=== PATIENT | male | born 1990 | race Caucasian/White ===

== ENCOUNTER 2019-01-22 19:35 | Inpatient (IN) ==
[2019-01-22] MEDS ORDERED: Isovue-370 500 ML BOTTLE IVP ONE (20:00)
[2019-01-22] MEDS ORDERED: 0.9 % Sodium Chloride 1,000 ML IVC ONE (20:01)
[2019-01-22] MEDS ORDERED: *HR* HYDROcodone/Acet 5/325 mg TABLET PO ONE (20:01)
[2019-01-22 20:23] LABS: Basophils % 0.1 %; Hematocrit 41.4 % (37.5-50.1); Hemoglobin 14.4 g/dL (12.9-16.9); Immature Granulocytes % 0.4 % (0-4); Lymphocytes # 0.4 K/mcL (0.6-4.6); Lymphocytes % 4.8 %; Mean Corpuscular HGB Conc 34.8 g/dL (31.6-35.5); Mean Corpuscular Hemoglobin 30.1 pg (28.0-33.3); Mean Corpuscular Volume 86.6 fL (83.0-100.0); Monocytes # 0.4 K/mcL (0.0-1.3); Monocytes % 5.3 %; Neutrophils # 7.3 K/mcL (1.6-8.9); Platelet Count 107 K/mcL (140-400); Red Blood Count 4.78 M/mcL (4.19-5.50); Red Cell Distribution Width 11.9 % (11.5-14.5); Segmented Neutrophils % 89.4 %; White Blood Count 8.1 K/mcL (4.3-11.1)
[2019-01-22 20:45] LABS: BUN/Creatinine Ratio 13 (6-26); Blood Urea Nitrogen 13 mg/dL (6-20); Calcium 9.1 mg/dL (8.6-10.3); Carbon Dioxide 25 mEq/L (23-29); Chloride 92 mEq/L (98-107); Glucose 128 mg/dL (70-105); Osmolality,Calculated 268 (280-300); Potassium 3.3 mEq/L (3.5-5.1); Sodium 128 mEq/L (136-145); Troponin I 0.03 ng/mL (< 0.04); eGFR For African Americans > 60 (> 60); eGFR For Non-African Americans > 60 (> 60)
[2019-01-22] MEDS ORDERED: Vancomycin (wt based) 1,000 MG VIAL IV STA (22:14)
[2019-01-22] MEDS ORDERED: Piperacillin/Tazobactam 3.375 GM in 0.9 % Sodium Chloride Mini Bag 100 ML IVPB ONE (22:14)
[2019-01-22] MEDS ORDERED: Potassium Chloride Elixir 20 MEQ/15 ML UDC PO ONE (22:59)
[2019-01-22 23:59] LABS: Amphetamine Screen,Urine Positive ng/mL (Cutoff=1000); Barbiturate Screen,Urine Negative ng/mL (Cutoff=200); Benzodiazepines Screen,Urine Negative ng/mL (Cutoff=200); Cannabinoid Screen,Urine Positive ng/mL (Cutoff = 50); Cocaine Screen,Urine Negative ng/mL (Cutoff= 300); Opiate Screen,Urine Positive ng/mL (Cutoff=300); Phencyclidine Screen,Urine Negative ng/mL (Cutoff=25)
[2019-01-23] MEDS: Ringers Solution, Lactated 1,000 ML IVC SCH ×3 (00:03→18:22)
[2019-01-23] MEDS: Acetaminophen 325 MG TABLET PO PRN (02:15)
[2019-01-23] MEDS ORDERED: Ringers Solution, Lactated 1,000 ML IVC ONE (06:13)
[2019-01-23] MEDS ORDERED: Ketorolac 30 MG/ML VIAL IVP ONE (06:13)
[2019-01-23] MEDS: *HR* Heparin 5,000 UNIT/ML VIAL SQ SCH ×2 (06:49→16:41)
[2019-01-23 07:13] LABS: Hepatitis B Surface Antigen Nonreactive (Nonreactive)
[2019-01-23 07:42] LABS: Hepatitis B Core IgM Nonreactive (Nonreactive)
[2019-01-23 07:43] LABS: Hepatitis A Antibody IgM Nonreactive (Nonreactive)
[2019-01-23 08:01] LABS: Alanine Aminotransferase 37 Units/L (7-52); Albumin 3.2 g/dL (3.5-5.7); Albumin/Globulin Ratio 1.1 (1.1-2.2); Alkaline Phosphatase 57 Units/L (34-104); Aspartate Amino Transferase 22 Units/L (13-39); BUN/Creatinine Ratio 14 (6-26); Bilirubin,Direct 0.3 mg/dL (0.0-0.2); Bilirubin,Indirect 0.4 mg/dL (0.0-1.0); Bilirubin,Total 0.7 mg/dL (0.3-1.0); Blood Urea Nitrogen 12 mg/dL (6-20); Calcium 8.3 mg/dL (8.6-10.3); Carbon Dioxide 24 mEq/L (23-29); Chloride 96 mEq/L (98-107); Glucose 129 mg/dL (70-105); Osmolality,Calculated 271 (280-300); Potassium 3.5 mEq/L (3.5-5.1); Sodium 130 mEq/L (136-145); Total Protein 6.2 g/dL (6.4-8.9); eGFR For African Americans > 60 (> 60); eGFR For Non-African Americans > 60 (> 60)
[2019-01-23] MEDS ORDERED: cefTRIAXone 2,000 MG in Water for inj. (sterile) 20 ML IVPB SCH (09:00)
[2019-01-23] MEDS ORDERED: cefTRIAXone 2,000 MG in Water for inj. (sterile) 10 ML IVPB SCH (09:00)
[2019-01-23 09:12] LABS: C-Reactive Protein 214 mg/L (Less than 10)
[2019-01-23] MEDS ORDERED: *HR* LORazepam 2 MG/ML VIAL IVP ONE (09:13)
[2019-01-23] MEDS ORDERED: *HR* LORazepam 0.5 MG TABLET PO ONE (09:15)
[2019-01-23 09:35] LABS: Basophils % 0.2 %; Hematocrit 36.6 % (37.5-50.1); Hemoglobin 12.9 g/dL (12.9-16.9); Immature Granulocytes % 0.7 % (0-4); Lymphocytes # 0.4 K/mcL (0.6-4.6); Lymphocytes % 6.3 %; Mean Corpuscular HGB Conc 35.2 g/dL (31.6-35.5); Mean Corpuscular Hemoglobin 30.1 pg (28.0-33.3); Mean Corpuscular Volume 85.5 fL (83.0-100.0); Mean Platelet Volume 12.6 fL (9.4-12.4); Monocytes # 0.3 K/mcL (0.0-1.3); Neutrophils # 5.3 K/mcL (1.6-8.9); Red Blood Count 4.28 M/mcL (4.19-5.50); Red Cell Distribution Width 11.9 % (11.5-14.5); Segmented Neutrophils % 87.8 %
[2019-01-23 09:36] LABS: Platelet Count 76 K/mcL (140-400)
[2019-01-23] MEDS ORDERED: *HR* LORazepam 2 MG/ML VIAL IVP PRN ×3 (13:02)
[2019-01-23] MEDS: Ketorolac 30 MG/ML VIAL IVP PRN (13:34)
[2019-01-23 14:24] LABS: INR 1.3; Prothrombin Time 14.9 Seconds (9.4-12.1)
[2019-01-23 14:24] LABS: Hepatitis C Virus Antibody Reactive (Nonreactive)
[2019-01-23 14:27] LABS: Activated Partial Thrombo Time 28.4 Seconds (26.0-36.0)
[2019-01-23] MEDS: Piperacillin/Tazobactam 3.375 GM in 0.9 % Sodium Chloride Mini Bag 100 ML IVPB SCH ×2 (16:36→22:52)
[2019-01-23] MEDS: *HR* OxyCODONE Immed Rel 5 MG TABLET PO PRN (22:51)
[2019-01-24] MEDS: Acetaminophen 325 MG TABLET PO PRN (00:10)
[2019-01-24 01:58] LABS: Basophils % 0.2 %; Red Cell Distribution Width 12.1 % (11.5-14.5)
[2019-01-24 01:59] LABS: Eosinophils # 0.1 K/mcL (0.0-0.6); Eosinophils % 1.8 %; Hematocrit 34.4 % (37.5-50.1); Hemoglobin 12.3 g/dL (12.9-16.9); Immature Granulocytes % 0.7 % (0-4); Lymphocytes # 0.3 K/mcL (0.6-4.6); Lymphocytes % 6.4 %; Mean Corpuscular HGB Conc 35.8 g/dL (31.6-35.5); Mean Corpuscular Hemoglobin 30.4 pg (28.0-33.3); Mean Corpuscular Volume 85.1 fL (83.0-100.0); Mean Platelet Volume 12.2 fL (9.4-12.4); Monocytes # 0.3 K/mcL (0.0-1.3); Monocytes % 5.5 %; Red Blood Count 4.04 M/mcL (4.19-5.50); Segmented Neutrophils % 85.4 %; White Blood Count 4.5 K/mcL (4.3-11.1)
[2019-01-24 02:12] LABS: Neutrophils # 3.8 K/mcL (1.6-8.9); Platelet Count 66 K/mcL (140-400)
[2019-01-24 02:15] LABS: BUN/Creatinine Ratio 21 (6-26); Blood Urea Nitrogen 18 mg/dL (6-20); Carbon Dioxide 26 mEq/L (23-29); Chloride 102 mEq/L (98-107); Glucose 175 mg/dL (70-105); Osmolality,Calculated 290 (280-300); Potassium 3.2 mEq/L (3.5-5.1); Sodium 137 mEq/L (136-145); Vancomycin,Trough 6 mcg/mL (5-10); eGFR For African Americans > 60 (> 60); eGFR For Non-African Americans > 60 (> 60)
[2019-01-24] MEDS ORDERED: Potassium Chloride 20 MEQ, Lidocaine 1% 2 ML in 0.9 % Sodium Chloride 250 ML IVPB ONE (03:33)
[2019-01-24] MEDS: *HR* Heparin 5,000 UNIT/ML VIAL SQ SCH ×2 (06:02→17:17)
[2019-01-24] MEDS: Piperacillin/Tazobactam 3.375 GM in 0.9 % Sodium Chloride Mini Bag 100 ML IVPB SCH ×2 (06:12→13:57)
[2019-01-24] MEDS: *HR* OxyCODONE Immed Rel 5 MG TABLET PO PRN (06:28)
[2019-01-24] MEDS ORDERED: *HR* FentaNYL PATCH 50 MCG PATCH TD SCH (08:00)
[2019-01-24 08:02] LABS: Acinetobacter baumannii by PCR Not Detected (Not Detect); Candida albicans by PCR Not Detected (Not Detect); Candida glabrata by PCR Not Detected (Not Detect); Candida krusei by PCR Not Detected (Not Detect); Candida parapsilosis by PCR Not Detected (Not Detect); Candida tropicalis by PCR Not Detected (Not Detect); Enterobacter cloacae Cmplx PCR Not Detected (Not Detect); Enterobacteriaceae by PCR Not Detected (Not Detect); Enterococcus by PCR Not Detected (Not Detect); Escherichia coli by PCR Not Detected (Not Detect); Klebsiella oxytoca by PCR Not Detected (Not Detect); Klebsiella pneumoniae by PCR Not Detected (Not Detect); Proteus by PCR Not Detected (Not Detect); Pseudomonas aeruginosa by PCR Not Detected (Not Detect); Serratia marcescens by PCR Not Detected (Not Detect); Staphylococcus aureus by PCR DETECTED (Not Detect); Streptococcus agalactiae(B)PCR Not Detected (Not Detect); Streptococcus by PCR Not Detected (Not Detect); Streptococcus pneumoniae PCR Not Detected (Not Detect); Streptococcus pyogenes (A) PCR Not Detected (Not Detect); mecA Methicillin-Resist Gene DETECTED (Not Detect)
[2019-01-24] MEDS: Ringers Solution, Lactated 1,000 ML IVC SCH ×2 (15:41→20:07)
[2019-01-24] MEDS: Ketorolac 30 MG/ML VIAL IVP PRN (19:17)
[2019-01-24 20:41] VITALS: BP 135/68
[2019-01-24] MEDS ORDERED: Aminoglycoside Consult 1 EACH MC ONE (22:29)
== END 2019-01-24 22:30 | disposition left against medical advice (07) | DRG 720 ==
LOC: CDU 19:35 → EMEROOARM 19:35 → CDU 01-23 01:31 → 2NNU 01-23 16:12
PROVIDERS: ADMIT Internal Medicine; ATTEND Internal Medicine

== ENCOUNTER 2019-01-31 16:41 | Inpatient (IN) ==
[2019-01-31] MEDS ORDERED: 0.9 % Sodium Chloride 1,000 ML IVC ONE (16:52)
[2019-01-31 17:40] LABS: Basophils % 0.2 %; Eosinophils % 0.1 %; Hematocrit 32.1 % (37.5-50.1); Hemoglobin 11.1 g/dL (12.9-16.9); Immature Granulocytes % 0.5 % (0-4); Lymphocytes # 0.4 K/mcL (0.6-4.6); Mean Corpuscular HGB Conc 34.6 g/dL (31.6-35.5); Mean Corpuscular Hemoglobin 29.9 pg (28.0-33.3); Mean Corpuscular Volume 86.5 fL (83.0-100.0); Mean Platelet Volume 12.3 fL (9.4-12.4); Monocytes # 0.2 K/mcL (0.0-1.3); Monocytes % 2.7 %; Neutrophils # 8.1 K/mcL (1.6-8.9); Platelet Count 119 K/mcL (140-400); Red Blood Count 3.71 M/mcL (4.19-5.50); Red Cell Distribution Width 12.5 % (11.5-14.5); Segmented Neutrophils % 92.5 %; White Blood Count 8.7 K/mcL (4.3-11.1)
[2019-01-31] MEDS ORDERED: *HR* FentaNYL (PF) 100 MCG/2 ML VIAL IVP ONE (17:55)
[2019-01-31 18:06] LABS: Alanine Aminotransferase 20 Units/L (7-52); Albumin 2.7 g/dL (3.5-5.7); Albumin/Globulin Ratio 0.7 (1.1-2.2); Alkaline Phosphatase 91 Units/L (34-104); Aspartate Amino Transferase 32 Units/L (13-39); BUN/Creatinine Ratio 16 (6-26); Bilirubin,Direct 0.3 mg/dL (0.0-0.2); Bilirubin,Indirect 0.5 mg/dL (0.0-1.0); Bilirubin,Total 0.8 mg/dL (0.3-1.0); Blood Urea Nitrogen 16 mg/dL (6-20); Calcium 7.8 mg/dL (8.6-10.3); Carbon Dioxide 25 mEq/L (23-29); Chloride 93 mEq/L (98-107); Globulin 3.8 g/dL (2.4-3.5); Glucose 178 mg/dL (70-105); Magnesium 2.2 mg/dL (1.6-2.6); Osmolality,Calculated 270 (280-300); Phosphorous 3.4 mg/dL (2.7-4.5); Sodium 127 mEq/L (136-145); Total Protein 6.5 g/dL (6.4-8.9); eGFR For African Americans > 60 (> 60); eGFR For Non-African Americans > 60 (> 60)
[2019-01-31] MEDS ORDERED: Potassium Chloride Elixir 20 MEQ/15 ML UDC PO ONE (18:28)
[2019-01-31] MEDS ORDERED: Aspirin 325 MG TABLET PO ONE (18:29)
[2019-01-31] MEDS ORDERED: Potassium Chloride 40 MEQ, Lidocaine 1% 2 ML in 0.9 % Sodium Chloride 500 ML IVPB ONE (18:41)
[2019-01-31] MEDS ORDERED: *HR* OxyCODONE Immed Rel 5 MG TABLET PO PRN (21:58)
[2019-01-31] MEDS ORDERED: Naloxone 0.4 MG/ML INJ IVP PRN (21:58)
[2019-01-31] MEDS ORDERED: Ondansetron ODT 4 MG TAB.RAPDIS SL PRN (21:58)
[2019-01-31] MEDS ORDERED: *HR* Heparin 5,000 UNIT/ML VIAL SQ SCH (22:45)
[2019-01-31] MEDS: Nicotine 21 MG PATCH.TD24 TD SCH (23:59)
[2019-02-01] MEDS ORDERED: *HR* LORazepam 2 MG/ML VIAL IVP PRN (00:16)
[2019-02-01 01:49] LABS: Troponin I 0.04 ng/mL (< 0.04)
[2019-02-01] MEDS: Ketorolac 30 MG/ML VIAL IVP PRN ×2 (04:38→12:53)
[2019-02-01 06:31] LABS: mecA Methicillin-Resist Gene DETECTED (Not Detect)
[2019-02-01 06:32] LABS: Acinetobacter baumannii by PCR Not Detected (Not Detect); Candida albicans by PCR Not Detected (Not Detect); Candida glabrata by PCR Not Detected (Not Detect); Candida krusei by PCR Not Detected (Not Detect); Candida parapsilosis by PCR Not Detected (Not Detect); Candida tropicalis by PCR Not Detected (Not Detect); Enterobacter cloacae Cmplx PCR Not Detected (Not Detect); Enterobacteriaceae by PCR Not Detected (Not Detect); Enterococcus by PCR Not Detected (Not Detect); Escherichia coli by PCR Not Detected (Not Detect); Klebsiella oxytoca by PCR Not Detected (Not Detect); Klebsiella pneumoniae by PCR Not Detected (Not Detect); Proteus by PCR Not Detected (Not Detect); Pseudomonas aeruginosa by PCR Not Detected (Not Detect); Serratia marcescens by PCR Not Detected (Not Detect); Staphylococcus aureus by PCR DETECTED (Not Detect); Streptococcus agalactiae(B)PCR Not Detected (Not Detect); Streptococcus by PCR Not Detected (Not Detect); Streptococcus pneumoniae PCR Not Detected (Not Detect); Streptococcus pyogenes (A) PCR Not Detected (Not Detect)
[2019-02-01] MEDS ORDERED: Potassium Chloride Elixir 20 MEQ/15 ML UDC PO ONE (07:38)
[2019-02-01] MEDS: 0.9 % Sodium Chloride 1,000 ML IVC SCH ×3 (11:43→22:29)
[2019-02-01 16:16] LABS: INR 1.2; Prothrombin Time 13.8 Seconds (9.4-12.1)
[2019-02-01 16:22] LABS: Basophils % 0.2 %
[2019-02-01 16:24] LABS: Eosinophils # 0.1 K/mcL (0.0-0.6); Eosinophils % 2.8 %; Hemoglobin 10.7 g/dL (12.9-16.9); Immature Granulocytes % 0.8 % (0-4); Immature Platelets 8.2 % (1.1-6.1); Lymphocytes # 0.6 K/mcL (0.6-4.6); Lymphocytes % 11.7 %; Mean Corpuscular HGB Conc 35.7 g/dL (31.6-35.5); Mean Corpuscular Hemoglobin 30.4 pg (28.0-33.3); Mean Corpuscular Volume 85.2 fL (83.0-100.0); Mean Platelet Volume 12.4 fL (9.4-12.4); Monocytes # 0.4 K/mcL (0.0-1.3); Monocytes % 8.7 %; Neutrophils # 3.7 K/mcL (1.6-8.9); Red Blood Count 3.52 M/mcL (4.19-5.50); Red Cell Distribution Width 12.7 % (11.5-14.5); Segmented Neutrophils % 75.8 %; White Blood Count 4.9 K/mcL (4.3-11.1)
[2019-02-01 16:25] LABS: Platelet Count 86 K/mcL (140-400)
[2019-02-01 16:35] LABS: BUN/Creatinine Ratio 26 (6-26); Blood Urea Nitrogen 24 mg/dL (6-20); Calcium 7.7 mg/dL (8.6-10.3); Carbon Dioxide 22 mEq/L (23-29); Chloride 104 mEq/L (98-107); Glucose 103 mg/dL (70-105); Osmolality,Calculated 282 (280-300); Potassium 4.2 mEq/L (3.5-5.1); Sodium 134 mEq/L (136-145); Troponin I < 0.03 ng/mL (< 0.04); eGFR For African Americans > 60 (> 60); eGFR For Non-African Americans > 60 (> 60)
[2019-02-01] MEDS: *HR* Heparin 5,000 UNIT/ML VIAL SQ SCH (19:49)
[2019-02-01] MEDS: Ketorolac 15 MG/ML VIAL IVP PRN (21:17)
[2019-02-01] MEDS: Acetaminophen 325 MG TABLET PO PRN (22:24)
[2019-02-01] MEDS: Melatonin 3 MG TABLET PO PRN (22:24)
[2019-02-01] MEDS: Nicotine 21 MG PATCH.TD24 TD SCH (22:24)
[2019-02-02] MEDS: *HR* Heparin 5,000 UNIT/ML VIAL SQ SCH ×3 (06:09→18:52)
[2019-02-02] MEDS: Ketorolac 15 MG/ML VIAL IVP PRN ×2 (08:50→18:50)
[2019-02-02 09:46] LABS: Hematocrit 28.3 % (37.5-50.1); Hemoglobin 9.8 g/dL (12.9-16.9); Immature Platelets 8.1 % (1.1-6.1); Mean Corpuscular HGB Conc 34.6 g/dL (31.6-35.5); Mean Corpuscular Volume 86.5 fL (83.0-100.0); Mean Platelet Volume 12.7 fL (9.4-12.4); Red Blood Count 3.27 M/mcL (4.19-5.50); Red Cell Distribution Width 12.6 % (11.5-14.5); White Blood Count 4.8 K/mcL (4.3-11.1)
[2019-02-02 09:53] LABS: INR 1.2; Prothrombin Time 14.1 Seconds (9.4-12.1)
[2019-02-02 10:03] LABS: BUN/Creatinine Ratio 23 (6-26); Blood Urea Nitrogen 18 mg/dL (6-20); Calcium 7.5 mg/dL (8.6-10.3); Carbon Dioxide 21 mEq/L (23-29); Chloride 105 mEq/L (98-107); Glucose 122 mg/dL (70-105); Osmolality,Calculated 277 (280-300); Sodium 132 mEq/L (136-145); Vancomycin,Trough 7 mcg/mL (5-10); eGFR For African Americans > 60 (> 60); eGFR For Non-African Americans > 60 (> 60)
[2019-02-02] MEDS: Nicotine 21 MG PATCH.TD24 TD SCH (22:14)
[2019-02-02] MEDS: Melatonin 3 MG TABLET PO PRN (22:16)
[2019-02-03] MEDS: 0.9 % Sodium Chloride 1,000 ML IVC SCH ×2 (02:44→19:09)
[2019-02-03] MEDS: Ketorolac 15 MG/ML VIAL IVP PRN ×3 (02:44→20:51)
[2019-02-03] MEDS: *HR* Heparin 5,000 UNIT/ML VIAL SQ SCH ×2 (05:53→18:55)
[2019-02-03] MEDS ORDERED: Morphine Sulfate 2 MG/ML SYRINGE IVP ONE (09:58)
[2019-02-03 11:00] LABS: Hematocrit 28.9 % (37.5-50.1); Hemoglobin 9.9 g/dL (12.9-16.9); Mean Corpuscular HGB Conc 34.3 g/dL (31.6-35.5); Mean Corpuscular Hemoglobin 29.6 pg (28.0-33.3); Mean Corpuscular Volume 86.3 fL (83.0-100.0); Mean Platelet Volume 12.3 fL (9.4-12.4); Platelet Count 153 K/mcL (140-400); Red Blood Count 3.35 M/mcL (4.19-5.50); Red Cell Distribution Width 12.8 % (11.5-14.5)
[2019-02-03 11:12] LABS: INR 1.2
[2019-02-03 11:16] LABS: BUN/Creatinine Ratio 19 (6-26); Blood Urea Nitrogen 14 mg/dL (6-20); Calcium 7.8 mg/dL (8.6-10.3); Carbon Dioxide 23 mEq/L (23-29); Chloride 105 mEq/L (98-107); Glucose 92 mg/dL (70-105); Osmolality,Calculated 282 (280-300); Potassium 4.1 mEq/L (3.5-5.1); Sodium 136 mEq/L (136-145); Vancomycin,Trough 10 mcg/mL (5-10); eGFR For African Americans > 60 (> 60); eGFR For Non-African Americans > 60 (> 60)
[2019-02-03] MEDS ORDERED: Lidocaine Viscous Oral Soln 15 ML SOLUTION MM PRN (13:12)
[2019-02-03] MEDS ORDERED: 0.9 % Sodium Chloride 500 ML IVC ONE (13:12)
[2019-02-03] MEDS: *HR* FentaNYL (PF) 100 MCG/2 ML VIAL IVP PRN ×3 (13:35→13:45)
[2019-02-03] MEDS: *HR* Midazolam HCl 5 MG/5 ML VIAL IVP PRN ×3 (13:35→13:45)
[2019-02-03 15:58] LABS: C-Reactive Protein 129 mg/L (Less than 10)
[2019-02-03] MEDS: Melatonin 3 MG TABLET PO PRN (20:52)
[2019-02-03] MEDS: Nicotine 21 MG PATCH.TD24 TD SCH (23:43)
[2019-02-04] MEDS: Acetaminophen 325 MG TABLET PO PRN ×3 (01:02→21:08)
[2019-02-04] MEDS ORDERED: *HR* OxyCODONE Immed Rel 5 MG TABLET PO ONE (01:22)
[2019-02-04] MEDS: *HR* Heparin 5,000 UNIT/ML VIAL SQ SCH ×2 (05:30→17:11)
[2019-02-04] MEDS: Ketorolac 15 MG/ML VIAL IVP PRN ×3 (09:00→22:56)
[2019-02-04] MEDS ORDERED: hydrOXYzine pamoate 25 MG CAPSULE PO PRN (11:46)
[2019-02-04 14:57] LABS: Hemoglobin 9.5 g/dL (12.9-16.9); Mean Corpuscular HGB Conc 32.8 g/dL (31.6-35.5); Mean Corpuscular Hemoglobin 29.8 pg (28.0-33.3); Mean Corpuscular Volume 90.9 fL (83.0-100.0); Mean Platelet Volume 11.7 fL (9.4-12.4); Platelet Count 182 K/mcL (140-400); Red Blood Count 3.19 M/mcL (4.19-5.50); Red Cell Distribution Width 12.8 % (11.5-14.5); White Blood Count 5.5 K/mcL (4.3-11.1)
[2019-02-04 15:32] LABS: BUN/Creatinine Ratio 16 (6-26); Blood Urea Nitrogen 12 mg/dL (6-20); Calcium 7.4 mg/dL (8.6-10.3); Carbon Dioxide 23 mEq/L (23-29); Chloride 106 mEq/L (98-107); Glucose 90 mg/dL (70-105); Osmolality,Calculated 275 (280-300); Potassium 4.2 mEq/L (3.5-5.1); Sodium 133 mEq/L (136-145); eGFR For African Americans > 60 (> 60); eGFR For Non-African Americans > 60 (> 60)
[2019-02-04] MEDS ORDERED: *HR* LORazepam 2 MG/ML VIAL IVP ONE (17:20)
[2019-02-04] MEDS: traZODone 50 MG TABLET PO SCH (21:08)
[2019-02-04] MEDS: Nicotine 21 MG PATCH.TD24 TD SCH (21:08)
[2019-02-04] MEDS: levETIRAcetam 250 MG TABLET PO SCH (21:08)
[2019-02-05] MEDS: *HR* LORazepam 0.5 MG TABLET PO PRN ×3 (00:49→18:10)
[2019-02-05] MEDS ORDERED: *HR* OxyCODONE Immed Rel 5 MG TABLET PO ONE (01:58)
[2019-02-05] MEDS: *HR* Heparin 5,000 UNIT/ML VIAL SQ SCH ×2 (05:57→17:03)
[2019-02-05] MEDS: Acetaminophen 325 MG TABLET PO PRN ×2 (07:11→17:06)
[2019-02-05] MEDS: Ketorolac 15 MG/ML VIAL IVP PRN (08:26)
[2019-02-05] MEDS: levETIRAcetam 250 MG TABLET PO SCH ×2 (08:26→21:12)
[2019-02-05 10:10] LABS: Adenovirus Not Detected (Not Detect); Bordetella Pertussis Not Detected (Not Detect); Chlamydophila pneumoniae Not Detected (Not Detect); Coronavirus 229E Not Detected (Not Detect); Coronavirus HKU1 Not Detected (Not Detect); Coronavirus NL63 Not Detected (Not Detect); Coronavirus OC43 Not Detected (Not Detect); Human Metapneumovirus Not Detected (Not Detect); Human Rhinovirus/Enterovirus Not Detected (Not Detect); Influenza B Not Detected (Not Detect); Mycoplasma pneumoniae Not Detected (Not Detect); Parainfluenza Virus 1 Not Detected (Not Detect); Parainfluenza Virus 2 Not Detected (Not Detect); Parainfluenza Virus 3 Not Detected (Not Detect); Parainfluenza Virus 4 Not Detected (Not Detect); Respiratory Syncytial Virus Not Detected (Not Detect)
[2019-02-05 10:16] LABS: Influenza A Subtype 2009 H1 DETECTED (Not Detect)
[2019-02-05] MEDS: Nicotine 21 MG PATCH.TD24 TD SCH (21:12)
[2019-02-05] MEDS: traZODone 50 MG TABLET PO SCH (21:12)
[2019-02-05] MEDS: Melatonin 3 MG TABLET PO PRN (21:12)
[2019-02-05] MEDS ORDERED: *HR* OxyCODONE/APAP 7.5/325 TABLET PO ONE (22:39)
[2019-02-06 01:34] LABS: Hematocrit 26.6 % (37.5-50.1); Hemoglobin 8.6 g/dL (12.9-16.9); Mean Corpuscular HGB Conc 32.3 g/dL (31.6-35.5); Mean Corpuscular Hemoglobin 29.7 pg (28.0-33.3); Mean Corpuscular Volume 91.7 fL (83.0-100.0); Mean Platelet Volume 11.1 fL (9.4-12.4); Platelet Count 203 K/mcL (140-400); Red Cell Distribution Width 12.9 % (11.5-14.5); White Blood Count 4.5 K/mcL (4.3-11.1)
[2019-02-06 01:54] LABS: Albumin/Globulin Ratio 0.5 (1.1-2.2); Bilirubin,Direct 0.1 mg/dL (0.0-0.2); Bilirubin,Indirect 0.2 mg/dL (0.0-1.0); Bilirubin,Total 0.3 mg/dL (0.3-1.0); Globulin 3.7 g/dL (2.4-3.5); Total Protein 5.7 g/dL (6.4-8.9)
[2019-02-06 01:55] LABS: BUN/Creatinine Ratio 13 (6-26); Blood Urea Nitrogen 15 mg/dL (6-20); Calcium 7.2 mg/dL (8.6-10.3); Carbon Dioxide 24 mEq/L (23-29); Chloride 103 mEq/L (98-107); Glucose 99 mg/dL (70-105); Magnesium 1.8 mg/dL (1.6-2.6); Osmolality,Calculated 277 (280-300); Potassium 4.1 mEq/L (3.5-5.1); Sodium 133 mEq/L (136-145); eGFR For African Americans > 60 (> 60); eGFR For Non-African Americans > 60 (> 60)
[2019-02-06] MEDS: Acetaminophen 325 MG TABLET PO PRN (04:07)
[2019-02-06] MEDS: *HR* Heparin 5,000 UNIT/ML VIAL SQ SCH ×2 (05:29→17:04)
[2019-02-06] MEDS ORDERED: Levalbuterol Neb 1.25 MG/3 ML ONE (05:52)
[2019-02-06] MEDS: Levalbuterol Neb 1.25 MG/3 ML IH SCH ×4 (05:54→21:46)
[2019-02-06 06:07] LABS: Hematocrit 25.3 % (37.5-50.1); Hemoglobin 8.6 g/dL (12.9-16.9); Mean Corpuscular Volume 88.2 fL (83.0-100.0); Mean Platelet Volume 11.7 fL (9.4-12.4); Platelet Count 230 K/mcL (140-400); Red Blood Count 2.87 M/mcL (4.19-5.50)
[2019-02-06 06:19] LABS: BUN/Creatinine Ratio 15 (6-26); Blood Urea Nitrogen 17 mg/dL (6-20); Calcium 7.5 mg/dL (8.6-10.3); Carbon Dioxide 21 mEq/L (23-29); Chloride 105 mEq/L (98-107); Glucose 88 mg/dL (70-105); Magnesium 1.8 mg/dL (1.6-2.6); Osmolality,Calculated 277 (280-300); Potassium 4.8 mEq/L (3.5-5.1); Sodium 133 mEq/L (136-145); eGFR For African Americans > 60 (> 60); eGFR For Non-African Americans > 60 (> 60)
[2019-02-06] MEDS: levETIRAcetam 250 MG TABLET PO SCH ×2 (08:29→20:08)
[2019-02-06] MEDS ORDERED: Benzonatate 100 MG CAPSULE PO PRN (08:59)
[2019-02-06] MEDS ORDERED: Ketorolac 30 MG/ML VIAL IVP ONE (09:00)
[2019-02-06] MEDS ORDERED: Isovue-370 500 ML BOTTLE IVP ONE (09:02)
[2019-02-06] MEDS ORDERED: *HR* OxyCODONE/APAP 5/325 TABLET PO ONE ×2 (11:20→16:42)
[2019-02-06] MEDS ORDERED: hydrOXYzine pamoate 25 MG CAPSULE PO PRN (14:57)
[2019-02-06] MEDS ORDERED: *HR* LORazepam 0.5 MG TABLET PO PRN (14:59)
[2019-02-06] MEDS: traZODone 50 MG TABLET PO SCH (20:08)
[2019-02-06] MEDS ORDERED: Haloperidol Lactate 5 MG/ML VIAL IVP ONE (20:49)
[2019-02-06] MEDS ORDERED: *HR* Promethazine 25 MG/ML VIAL IVP ONE (20:50)
[2019-02-06] MEDS: Nicotine 21 MG PATCH.TD24 TD SCH (22:44)
[2019-02-07] MEDS: Levalbuterol Neb 1.25 MG/3 ML IH SCH ×4 (03:33→22:37)
[2019-02-07] MEDS: *HR* Heparin 5,000 UNIT/ML VIAL SQ SCH ×2 (05:59→17:55)
[2019-02-07] MEDS: levETIRAcetam 250 MG TABLET PO SCH ×2 (07:22→20:59)
[2019-02-07 08:24] LABS: Hematocrit 27.4 % (37.5-50.1); Hemoglobin 8.9 g/dL (12.9-16.9); Mean Corpuscular HGB Conc 32.5 g/dL (31.6-35.5); Mean Corpuscular Hemoglobin 29.5 pg (28.0-33.3); Mean Corpuscular Volume 90.7 fL (83.0-100.0); Mean Platelet Volume 10.8 fL (9.4-12.4); Platelet Count 272 K/mcL (140-400); Red Blood Count 3.02 M/mcL (4.19-5.50); Red Cell Distribution Width 12.8 % (11.5-14.5); White Blood Count 5.6 K/mcL (4.3-11.1)
[2019-02-07 08:38] LABS: Alanine Aminotransferase 21 Units/L (7-52); Albumin/Globulin Ratio 0.5 (1.1-2.2); Alkaline Phosphatase 64 Units/L (34-104); Aspartate Amino Transferase 28 Units/L (13-39); BUN/Creatinine Ratio 14 (6-26); Bilirubin,Total 0.3 mg/dL (0.3-1.0); Blood Urea Nitrogen 19 mg/dL (6-20); Calcium 7.4 mg/dL (8.6-10.3); Carbon Dioxide 24 mEq/L (23-29); Chloride 102 mEq/L (98-107); Glucose 90 mg/dL (70-105); Osmolality,Calculated 276 (280-300); Potassium 4.7 mEq/L (3.5-5.1); Sodium 132 mEq/L (136-145); eGFR For African Americans > 60 (> 60); eGFR For Non-African Americans > 60 (> 60)
[2019-02-07] MEDS ORDERED: *HR* FentaNYL (PF) 100 MCG/2 ML VIAL ONE ×2 (13:20→14:27)
[2019-02-07] MEDS ORDERED: *HR* Midazolam HCl 2 MG/2 ML VIAL ONE (13:20)
[2019-02-07] MEDS ORDERED: *HR* Propofol 200 MG/20 ML VIAL IVP ONE (13:20)
[2019-02-07] MEDS ORDERED: Dexamethasone 4 MG/ML VIAL ONE (14:23)
[2019-02-07] MEDS ORDERED: Naloxone 0.4 MG/ML INJ IVP PRN (14:51)
[2019-02-07] MEDS ORDERED: Acetaminophen 325 MG TABLET PO PRN (14:51)
[2019-02-07] MEDS ORDERED: Benzonatate 100 MG CAPSULE PO PRN (14:51)
[2019-02-07] MEDS ORDERED: Melatonin 3 MG TABLET PO PRN (14:51)
[2019-02-07] MEDS: 0.9 % Sodium Chloride 1,000 ML IVC SCH (16:20)
[2019-02-07] MEDS: Gabapentin 300 MG CAPSULE PO SCH ×2 (16:21→21:00)
[2019-02-07] MEDS: *HR* HYDROcodone/Acet 5/325 mg TABLET PO PRN (17:55)
[2019-02-07] MEDS: *HR* LORazepam 0.5 MG TABLET PO PRN (20:59)
[2019-02-07] MEDS ORDERED: traZODone 50 MG TABLET PO SCH (21:00)
[2019-02-07] MEDS ORDERED: Nicotine 21 MG PATCH.TD24 TD SCH (21:00)
[2019-02-08] MEDS: *HR* HYDROcodone/Acet 5/325 mg TABLET PO PRN ×5 (01:47→21:36)
[2019-02-08] MEDS: *HR* LORazepam 0.5 MG TABLET PO PRN ×3 (01:50→20:01)
[2019-02-08] MEDS: Levalbuterol Neb 1.25 MG/3 ML IH SCH ×4 (03:49→22:37)
[2019-02-08] MEDS: 0.9 % Sodium Chloride 1,000 ML IVC SCH (04:25)
[2019-02-08 04:35] LABS: Basophils % 0.2 %; Eosinophils % 0.2 %; Hematocrit 30.4 % (37.5-50.1); Immature Granulocytes % 0.9 % (0-4); Lymphocytes # 0.7 K/mcL (0.6-4.6); Lymphocytes % 14.1 %; Mean Corpuscular HGB Conc 32.9 g/dL (31.6-35.5); Mean Corpuscular Volume 91.3 fL (83.0-100.0); Mean Platelet Volume 10.5 fL (9.4-12.4); Monocytes # 0.2 K/mcL (0.0-1.3); Neutrophils # 3.7 K/mcL (1.6-8.9); Platelet Count 270 K/mcL (140-400); Red Blood Count 3.33 M/mcL (4.19-5.50); Red Cell Distribution Width 12.7 % (11.5-14.5); Segmented Neutrophils % 79.6 %; White Blood Count 4.6 K/mcL (4.3-11.1)
[2019-02-08 04:57] LABS: BUN/Creatinine Ratio 20 (6-26); Blood Urea Nitrogen 25 mg/dL (6-20); Calcium 7.8 mg/dL (8.6-10.3); Carbon Dioxide 21 mEq/L (23-29); Chloride 104 mEq/L (98-107); Glucose 182 mg/dL (70-105); Osmolality,Calculated 285 (280-300); Potassium 5.4 mEq/L (3.5-5.1); Sodium 133 mEq/L (136-145); eGFR For African Americans > 60 (> 60); eGFR For Non-African Americans > 60 (> 60)
[2019-02-08] MEDS: *HR* Heparin 5,000 UNIT/ML VIAL SQ SCH ×2 (05:22→17:58)
[2019-02-08] MEDS: levETIRAcetam 250 MG TABLET PO SCH ×2 (08:31→20:02)
[2019-02-08] MEDS: Gabapentin 300 MG CAPSULE PO SCH ×3 (08:31→20:01)
[2019-02-08] MEDS ORDERED: Naloxone 0.4 MG/ML INJ IVP PRN (11:11)
[2019-02-08] MEDS: Acetaminophen 325 MG TABLET PO PRN (15:03)
[2019-02-08] MEDS: Nicotine 21 MG PATCH.TD24 TD SCH (20:00)
[2019-02-08] MEDS: traZODone 50 MG TABLET PO SCH (20:01)
[2019-02-08] MEDS: Benzonatate 100 MG CAPSULE PO PRN (21:37)
[2019-02-08] MEDS: Melatonin 3 MG TABLET PO PRN (22:23)
[2019-02-09] MEDS: Levalbuterol Neb 1.25 MG/3 ML IH SCH ×4 (03:28→21:20)
[2019-02-09] MEDS: *HR* HYDROcodone/Acet 5/325 mg TABLET PO PRN ×3 (03:33→19:51)
[2019-02-09] MEDS ORDERED: GuaiFENesin Liq 200 MG/10 ML UDC PO PRN (03:42)
[2019-02-09] MEDS: Benzonatate 100 MG CAPSULE PO PRN (04:26)
[2019-02-09] MEDS: *HR* Heparin 5,000 UNIT/ML VIAL SQ SCH ×2 (08:19→16:55)
[2019-02-09] MEDS: Gabapentin 300 MG CAPSULE PO SCH ×3 (08:49→19:50)
[2019-02-09] MEDS: levETIRAcetam 250 MG TABLET PO SCH ×2 (08:50→19:51)
[2019-02-09] MEDS ORDERED: *HR* OxyCODONE/APAP 5/325 TABLET PO ONE (11:43)
[2019-02-09] MEDS: traZODone 50 MG TABLET PO SCH (19:51)
[2019-02-09] MEDS: Nicotine 21 MG PATCH.TD24 TD SCH (19:52)
[2019-02-10] MEDS: *HR* HYDROcodone/Acet 5/325 mg TABLET PO PRN ×4 (00:21→13:02)
[2019-02-10 03:00] LABS: Hemoglobin 9.1 g/dL (12.9-16.9); Mean Corpuscular HGB Conc 32.5 g/dL (31.6-35.5); Mean Corpuscular Hemoglobin 29.5 pg (28.0-33.3); Mean Corpuscular Volume 90.9 fL (83.0-100.0); Mean Platelet Volume 10.2 fL (9.4-12.4); Platelet Count 308 K/mcL (140-400); Red Blood Count 3.08 M/mcL (4.19-5.50); Red Cell Distribution Width 13.2 % (11.5-14.5); White Blood Count 6.3 K/mcL (4.3-11.1)
[2019-02-10 03:21] LABS: Albumin/Globulin Ratio 0.5 (1.1-2.2); Bilirubin,Total 0.2 mg/dL (0.3-1.0); Calcium 7.9 mg/dL (8.6-10.3); Globulin 3.7 g/dL (2.4-3.5); Magnesium 2.1 mg/dL (1.6-2.6); Potassium 5.5 mEq/L (3.5-5.1); Total Protein 5.7 g/dL (6.4-8.9)
[2019-02-10] MEDS: Levalbuterol Neb 1.25 MG/3 ML IH SCH ×5 (04:01→23:07)
[2019-02-10] MEDS: *HR* Heparin 5,000 UNIT/ML VIAL SQ SCH ×2 (06:54→18:00)
[2019-02-10] MEDS: levETIRAcetam 250 MG TABLET PO SCH ×2 (09:11→20:05)
[2019-02-10] MEDS: Gabapentin 300 MG CAPSULE PO SCH (09:12)
[2019-02-10] MEDS: 0.9 % Sodium Chloride 1,000 ML IVC SCH ×2 (11:07→22:28)
[2019-02-10] MEDS: Gabapentin 100 MG CAPSULE PO SCH ×2 (15:56→20:05)
[2019-02-10] MEDS: Acetaminophen 325 MG TABLET PO PRN (17:59)
[2019-02-10] MEDS: *HR* HYDROcodone/Acet 7.5/325 mg TABLET PO PRN (20:05)
[2019-02-10] MEDS: Nicotine 21 MG PATCH.TD24 TD SCH (20:06)
[2019-02-10] MEDS: traZODone 50 MG TABLET PO SCH (20:06)
[2019-02-10] MEDS: Melatonin 3 MG TABLET PO PRN (20:11)
[2019-02-11 00:43] LABS: Amphetamine Screen,Urine Negative ng/mL (Cutoff=1000); Barbiturate Screen,Urine Negative ng/mL (Cutoff=200); Benzodiazepines Screen,Urine Negative ng/mL (Cutoff=200); Cannabinoid Screen,Urine Negative ng/mL (Cutoff = 50); Cocaine Screen,Urine Negative ng/mL (Cutoff= 300); Opiate Screen,Urine Positive ng/mL (Cutoff=300); Phencyclidine Screen,Urine Negative ng/mL (Cutoff=25)
[2019-02-11 01:11] LABS: Bilirubin,Urine Negative (Negative); Blood,Urine Moderate (Negative); Clarity,Urine Clear (Clear); Color,Urine Yellow (Yellow); Glucose,Urine (UA) Normal (Normal); Ketones,Urine Negative (Negative); Leukocyte Esterase,Urine Negative (Negative); Nitrite,Urine Negative (Negative); Protein,Urine 100 mg/dL (Neg-Trace); Urobilinogen,Urine Normal (Normal)
[2019-02-11 01:12] LABS: Bacteria,Urine None Seen per hpf (None-Few); Hyaline Casts,Urine None Seen per lpf (None-Few); Squamous Epithelial Cell,Urine Many per lpf (None-Few)
[2019-02-11] MEDS: Levalbuterol Neb 1.25 MG/3 ML IH SCH ×4 (04:25→22:33)
[2019-02-11] MEDS: *HR* Heparin 5,000 UNIT/ML VIAL SQ SCH ×2 (06:25→17:59)
[2019-02-11] MEDS: Gabapentin 100 MG CAPSULE PO SCH ×3 (08:08→21:00)
[2019-02-11] MEDS: levETIRAcetam 250 MG TABLET PO SCH ×2 (08:08→21:00)
[2019-02-11] MEDS: *HR* HYDROcodone/Acet 7.5/325 mg TABLET PO PRN (09:04)
[2019-02-11 09:51] LABS: Hematocrit 29.7 % (37.5-50.1); Hemoglobin 9.5 g/dL (12.9-16.9); Mean Corpuscular Hemoglobin 29.7 pg (28.0-33.3); Mean Corpuscular Volume 92.8 fL (83.0-100.0); Mean Platelet Volume 10.1 fL (9.4-12.4); Platelet Count 350 K/mcL (140-400); Red Cell Distribution Width 12.9 % (11.5-14.5)
[2019-02-11 10:02] LABS: Potassium 5.1 mEq/L (3.5-5.1); Uric Acid 6.2 mg/dL (2.3-7.6)
[2019-02-11 10:05] LABS: White Blood Count 9.5 K/mcL (4.3-11.1)
[2019-02-11 10:25] LABS: Hepatitis B Surface Antigen Nonreactive (Nonreactive)
[2019-02-11 10:53] LABS: HIV-1&2 Antibody & p24 Ag Nonreactive (Nonreactive)
[2019-02-11] MEDS ORDERED: cloNIDine HCl 0.1 MG TABLET PO PRN (11:08)
[2019-02-11] MEDS ORDERED: *HR* Buprenorphine HCl 8 MG TAB.SUBL SL ONE (12:15)
[2019-02-11] MEDS: *HR* Buprenorphine HCl 2 MG SUBLINGUAL TABLET SL PRN ×2 (18:48→22:28)
[2019-02-11 19:07] LABS: Hepatitis C Virus Antibody Reactive (Nonreactive)
[2019-02-11] MEDS: Nicotine 21 MG PATCH.TD24 TD SCH (21:00)
[2019-02-11] MEDS: traZODone 50 MG TABLET PO SCH (21:00)
[2019-02-12] MEDS: Levalbuterol Neb 1.25 MG/3 ML IH SCH ×4 (04:16→21:37)
[2019-02-12] MEDS: *HR* Heparin 5,000 UNIT/ML VIAL SQ SCH ×2 (04:54→17:25)
[2019-02-12 05:06] LABS: Hematocrit 29.5 % (37.5-50.1); Hemoglobin 9.3 g/dL (12.9-16.9); Mean Corpuscular HGB Conc 31.5 g/dL (31.6-35.5); Mean Corpuscular Hemoglobin 29.4 pg (28.0-33.3); Mean Corpuscular Volume 93.4 fL (83.0-100.0); Mean Platelet Volume 10.1 fL (9.4-12.4); Platelet Count 355 K/mcL (140-400); Red Blood Count 3.16 M/mcL (4.19-5.50); White Blood Count 9.3 K/mcL (4.3-11.1)
[2019-02-12 05:19] LABS: BUN/Creatinine Ratio 27 (6-26); Blood Urea Nitrogen 44 mg/dL (6-20); Carbon Dioxide 23 mEq/L (23-29); Chloride 108 mEq/L (98-107); Glucose 120 mg/dL (70-105); Osmolality,Calculated 292 (280-300); Sodium 135 mEq/L (136-145); eGFR For African Americans > 60 (> 60); eGFR For Non-African Americans 50 (> 60)
[2019-02-12] MEDS: levETIRAcetam 250 MG TABLET PO SCH ×2 (07:56→20:48)
[2019-02-12] MEDS: Gabapentin 100 MG CAPSULE PO SCH ×3 (07:56→20:49)
[2019-02-12] MEDS: *HR* Buprenorphine HCl 2 MG SUBLINGUAL TABLET SL SCH (09:43)
[2019-02-12] MEDS ORDERED: *HR* Buprenorphine HCl 2 MG SUBLINGUAL TABLET SL ONE (14:43)
[2019-02-12] MEDS: traZODone 50 MG TABLET PO SCH (20:51)
[2019-02-12] MEDS ORDERED: *HR* Buprenorphine HCl 2 MG SUBLINGUAL TABLET SL SCH (21:00)
[2019-02-12] MEDS: Nicotine 21 MG PATCH.TD24 TD SCH (23:20)
[2019-02-13] MEDS: Levalbuterol Neb 1.25 MG/3 ML IH SCH ×2 (03:06→09:48)
[2019-02-13] MEDS: *HR* Heparin 5,000 UNIT/ML VIAL SQ SCH ×2 (05:43→17:23)
[2019-02-13] MEDS: Gabapentin 100 MG CAPSULE PO SCH ×3 (07:45→20:06)
[2019-02-13] MEDS: *HR* Buprenorphine HCl 2 MG SUBLINGUAL TABLET SL SCH ×3 (07:46→20:06)
[2019-02-13] MEDS: levETIRAcetam 250 MG TABLET PO SCH ×2 (07:46→20:07)
[2019-02-13] MEDS ORDERED: Aminoglycoside Consult 1 EACH MC ONE (08:17)
[2019-02-13 09:22] LABS: Basophils % 0.4 %; Eosinophils # 0.7 K/mcL (0.0-0.6); Eosinophils % 8.6 %; Hematocrit 28.5 % (37.5-50.1); Hemoglobin 9.1 g/dL (12.9-16.9); Immature Granulocytes % 1.4 % (0-4); Lymphocytes # 1.4 K/mcL (0.6-4.6); Lymphocytes % 16.5 %; Mean Corpuscular HGB Conc 31.9 g/dL (31.6-35.5); Mean Corpuscular Hemoglobin 29.3 pg (28.0-33.3); Mean Corpuscular Volume 91.6 fL (83.0-100.0); Mean Platelet Volume 9.9 fL (9.4-12.4); Monocytes # 0.9 K/mcL (0.0-1.3); Monocytes % 10.4 %; Neutrophils # 5.3 K/mcL (1.6-8.9); Platelet Count 368 K/mcL (140-400); Red Blood Count 3.11 M/mcL (4.19-5.50); Red Cell Distribution Width 13.1 % (11.5-14.5); Segmented Neutrophils % 62.7 %; White Blood Count 8.5 K/mcL (4.3-11.1)
[2019-02-13 09:41] LABS: Calcium 8.4 mg/dL (8.6-10.3); Potassium 5.5 mEq/L (3.5-5.1)
[2019-02-13] MEDS ORDERED: Levalbuterol Neb 1.25 MG/3 ML IH PRN (09:54)
[2019-02-13 14:24] LABS: Buprenorphine, Urine <2 ng/mL
[2019-02-13 16:53] LABS: Amphetamines NEGATIVE ng/mL (Cutoff 30); Barbiturates NEGATIVE ng/mL (Cutoff 75); Benzodiazepines NEGATIVE ng/mL (Cutoff 75); Buprenorphine NEGATIVE ng/mL (Cutoff 1); Cocaine NEGATIVE ng/mL (Cutoff 30); Methadone NEGATIVE ng/mL (Cutoff 40); Methamphetamines NEGATIVE ng/mL (Cutoff 30); Phencyclidine NEGATIVE ng/mL (Cutoff 15)
[2019-02-13] MEDS: Nicotine 21 MG PATCH.TD24 TD SCH (20:05)
[2019-02-13] MEDS: Ceftaroline Fosamil Acetate 600 MG in 0.9 % Sodium Chloride 50 ML IVPB SCH (20:07)
[2019-02-13] MEDS: traZODone 50 MG TABLET PO SCH (20:07)
[2019-02-14] MEDS: *HR* Heparin 5,000 UNIT/ML VIAL SQ SCH ×2 (05:09→14:38)
[2019-02-14 05:48] LABS: Calcium 8.5 mg/dL (8.6-10.3); Potassium 5.5 mEq/L (3.5-5.1)
[2019-02-14 05:49] LABS: Basophils % 0.4 %; Eosinophils # 0.8 K/mcL (0.0-0.6); Eosinophils % 10.8 %; Hematocrit 27.7 % (37.5-50.1); Hemoglobin 8.9 g/dL (12.9-16.9); Immature Granulocytes % 1.4 % (0-4); Lymphocytes # 1.3 K/mcL (0.6-4.6); Lymphocytes % 17.1 %; Mean Corpuscular HGB Conc 32.1 g/dL (31.6-35.5); Mean Corpuscular Hemoglobin 29.1 pg (28.0-33.3); Mean Corpuscular Volume 90.5 fL (83.0-100.0); Mean Platelet Volume 10.3 fL (9.4-12.4); Monocytes # 0.8 K/mcL (0.0-1.3); Monocytes % 11.1 %; Neutrophils # 4.4 K/mcL (1.6-8.9); Platelet Count 334 K/mcL (140-400); Red Blood Count 3.06 M/mcL (4.19-5.50); Red Cell Distribution Width 13.2 % (11.5-14.5); Segmented Neutrophils % 59.2 %; White Blood Count 7.3 K/mcL (4.3-11.1)
[2019-02-14] MEDS: levETIRAcetam 250 MG TABLET PO SCH ×2 (09:20→21:07)
[2019-02-14] MEDS: *HR* Buprenorphine HCl 2 MG SUBLINGUAL TABLET SL SCH ×3 (09:21→21:16)
[2019-02-14] MEDS: Gabapentin 100 MG CAPSULE PO SCH ×3 (09:22→21:07)
[2019-02-14] MEDS: Ceftaroline Fosamil Acetate 600 MG in 0.9 % Sodium Chloride 50 ML IVPB SCH ×2 (09:28→21:16)
[2019-02-14 13:47] LABS: Opiates POSITIVE ng/mL (Cutoff 30)
[2019-02-14 14:09] LABS: HCV Quant Interpretation DETECTED (Not Detected)
[2019-02-14] MEDS: Nicotine 21 MG PATCH.TD24 TD SCH (21:07)
[2019-02-14] MEDS: traZODone 50 MG TABLET PO SCH (21:07)
[2019-02-15 06:12] LABS: Basophils % 0.3 %; Eosinophils # 0.7 K/mcL (0.0-0.6); Hematocrit 27.1 % (37.5-50.1); Immature Granulocytes % 1.6 % (0-4); Lymphocytes # 0.9 K/mcL (0.6-4.6); Lymphocytes % 12.7 %; Mean Corpuscular HGB Conc 33.2 g/dL (31.6-35.5); Mean Corpuscular Hemoglobin 29.6 pg (28.0-33.3); Mean Corpuscular Volume 89.1 fL (83.0-100.0); Mean Platelet Volume 9.8 fL (9.4-12.4); Monocytes # 0.8 K/mcL (0.0-1.3); Monocytes % 11.4 %; Neutrophils # 4.5 K/mcL (1.6-8.9); Platelet Count 327 K/mcL (140-400); Red Blood Count 3.04 M/mcL (4.19-5.50)
[2019-02-15] MEDS: *HR* Heparin 5,000 UNIT/ML VIAL SQ SCH ×2 (06:22→14:40)
[2019-02-15 06:32] LABS: Calcium 8.9 mg/dL (8.6-10.3); Potassium 5.8 mEq/L (3.5-5.1)
[2019-02-15] MEDS: Ceftaroline Fosamil Acetate 600 MG in 0.9 % Sodium Chloride 50 ML IVPB SCH (08:31)
[2019-02-15] MEDS: Gabapentin 100 MG CAPSULE PO SCH ×3 (08:32→21:36)
[2019-02-15] MEDS: levETIRAcetam 250 MG TABLET PO SCH ×2 (08:32→21:36)
[2019-02-15] MEDS: *HR* Buprenorphine HCl 2 MG SUBLINGUAL TABLET SL SCH ×3 (08:32→21:37)
[2019-02-15] MEDS: traZODone 50 MG TABLET PO SCH (21:36)
[2019-02-15] MEDS: Nicotine 21 MG PATCH.TD24 TD SCH (21:37)
[2019-02-15] MEDS: Ceftaroline Fosamil Acetate 400 MG in 0.9 % Sodium Chloride 50 ML IVPB SCH (23:04)
[2019-02-15] MEDS: SODIUM ZIRCONIUM CYCLOSILICATE 5 GM POWD.PACK PO SCH (23:26)
[2019-02-16] MEDS: *HR* Heparin 5,000 UNIT/ML VIAL SQ SCH ×2 (05:19→16:27)
[2019-02-16 07:36] LABS: 6_Acetylmorphine Confirmation <2 ng/mL; Hydrocodone Confirmation 29 ng/mL; Oxymorphone Confirmation <2 ng/mL
[2019-02-16] MEDS: SODIUM ZIRCONIUM CYCLOSILICATE 5 GM POWD.PACK PO SCH (08:51)
[2019-02-16] MEDS: Gabapentin 100 MG CAPSULE PO SCH ×3 (08:51→21:24)
[2019-02-16] MEDS: *HR* Buprenorphine HCl 2 MG SUBLINGUAL TABLET SL SCH ×3 (08:51→21:24)
[2019-02-16] MEDS: levETIRAcetam 250 MG TABLET PO SCH ×2 (08:51→21:23)
[2019-02-16] MEDS: Ceftaroline Fosamil Acetate 400 MG in 0.9 % Sodium Chloride 50 ML IVPB SCH ×2 (08:53→22:59)
[2019-02-16] MEDS: Nicotine 21 MG PATCH.TD24 TD SCH (21:22)
[2019-02-16] MEDS: traZODone 50 MG TABLET PO SCH (21:23)
[2019-02-17 04:53] LABS: Basophils % 0.4 %; Eosinophils # 0.9 K/mcL (0.0-0.6); Eosinophils % 13.2 %; Hematocrit 29.3 % (37.5-50.1); Hemoglobin 9.6 g/dL (12.9-16.9); Immature Granulocytes % 1.2 % (0-4); Lymphocytes # 1.4 K/mcL (0.6-4.6); Mean Corpuscular HGB Conc 32.8 g/dL (31.6-35.5); Mean Corpuscular Volume 88.5 fL (83.0-100.0); Monocytes # 0.8 K/mcL (0.0-1.3); Neutrophils # 3.7 K/mcL (1.6-8.9); Platelet Count 373 K/mcL (140-400); Red Blood Count 3.31 M/mcL (4.19-5.50); Red Cell Distribution Width 13.1 % (11.5-14.5); Segmented Neutrophils % 54.2 %; White Blood Count 6.8 K/mcL (4.3-11.1)
[2019-02-17] MEDS: *HR* Heparin 5,000 UNIT/ML VIAL SQ SCH (05:08)
[2019-02-17 05:11] LABS: Calcium 9.2 mg/dL (8.6-10.3)
[2019-02-17] MEDS ORDERED: *HR* Buprenorphine HCl 2 MG SUBLINGUAL TABLET SL SCH (09:00)
[2019-02-17] MEDS: Gabapentin 100 MG CAPSULE PO SCH ×2 (09:57→13:38)
[2019-02-17] MEDS: levETIRAcetam 250 MG TABLET PO SCH (09:57)
[2019-02-17] MEDS: SODIUM ZIRCONIUM CYCLOSILICATE 5 GM POWD.PACK PO SCH (09:58)
[2019-02-17] MEDS: Ceftaroline Fosamil Acetate 400 MG in 0.9 % Sodium Chloride 50 ML IVPB SCH (09:58)
[2019-02-17] MEDS: *HR* Buprenorphine HCl 2 MG SUBLINGUAL TABLET SL SCH (13:39)
[2019-02-17 13:42] VITALS: BP 155/83
[2019-02-17] MEDS ORDERED: Clotrimazole 1% CRM 15 GM TUBE TP SCH (21:00)
== END 2019-02-17 14:40 | disposition left against medical advice (07) | DRG 710 ==
LOC: EMEROOARM 16:41 → 2NENU 16:41 → SUATTDRO 18:54 → 2NENU 20:09 → SUATTDRO 02-01 13:51 → ICNU 02-07 13:58 → 2NNU 02-09 01:49 → CDU 02-17 10:42
PROVIDERS: ADMIT Internal Medicine; ATTEND Internal Medicine

== ENCOUNTER 2019-02-24 14:09 | Inpatient (IN) ==
[2019-02-24 16:02] LABS: Basophils % 0.2 %; Eosinophils # 1.3 K/mcL (0.0-0.6); Eosinophils % 14.3 %; Hematocrit 25.8 % (37.5-50.1); Hemoglobin 8.6 g/dL (12.9-16.9); Immature Granulocytes % 0.2 % (0-4); Lymphocytes # 1.5 K/mcL (0.6-4.6); Lymphocytes % 16.5 %; Mean Corpuscular HGB Conc 33.3 g/dL (31.6-35.5); Mean Corpuscular Hemoglobin 29.4 pg (28.0-33.3); Mean Corpuscular Volume 88.1 fL (83.0-100.0); Mean Platelet Volume 9.7 fL (9.4-12.4); Monocytes # 0.6 K/mcL (0.0-1.3); Monocytes % 6.9 %; Neutrophils # 5.5 K/mcL (1.6-8.9); Platelet Count 325 K/mcL (140-400); Red Blood Count 2.93 M/mcL (4.19-5.50); Red Cell Distribution Width 13.1 % (11.5-14.5); Segmented Neutrophils % 61.9 %; White Blood Count 8.8 K/mcL (4.3-11.1)
[2019-02-24 16:03] LABS: INR 1.1; Prothrombin Time 12.8 Seconds (9.4-12.1)
[2019-02-24 16:19] LABS: Alanine Aminotransferase 32 Units/L (7-52); Albumin 3.1 g/dL (3.5-5.7); Albumin/Globulin Ratio 0.7 (1.1-2.2); Alkaline Phosphatase 110 Units/L (34-104); Aspartate Amino Transferase 21 Units/L (13-39); Bilirubin,Direct 0.1 mg/dL (0.0-0.2); Bilirubin,Indirect 0.3 mg/dL (0.0-1.0); Bilirubin,Total 0.4 mg/dL (0.3-1.0); Blood Urea Nitrogen 34 mg/dL (6-20); Calcium 8.4 mg/dL (8.6-10.3); Carbon Dioxide 25 mEq/L (23-29); Chloride 103 mEq/L (98-107); Globulin 4.2 g/dL (2.4-3.5); Glucose 96 mg/dL (70-105); Osmolality,Calculated 289 (280-300); Potassium 3.8 mEq/L (3.5-5.1); Sodium 136 mEq/L (136-145); Total Protein 7.3 g/dL (6.4-8.9); Troponin I < 0.03 ng/mL (< 0.04)
[2019-02-24] MEDS ORDERED: Ceftaroline Fosamil Acetate 600 MG in 0.9 % Sodium Chloride 50 ML IVPB ONE (16:30)
[2019-02-24] MEDS ORDERED: 0.9 % Sodium Chloride 1,000 ML IVC ONE (16:32)
[2019-02-24 16:51] LABS: BUN/Creatinine Ratio 13 (6-26); eGFR For African Americans 35 (> 60); eGFR For Non-African Americans 29 (> 60)
[2019-02-24] MEDS ORDERED: Naloxone 0.4 MG/ML INJ IVP PRN (17:00)
[2019-02-24] MEDS ORDERED: Ondansetron 4 MG/2 ML VIAL IVP PRN (17:00)
[2019-02-24 17:18] LABS: Bilirubin,Urine Small (Negative); Blood,Urine Large (Negative); Clarity,Urine Cloudy (Clear); Color,Urine Dark Yellow (Yellow); Glucose,Urine (UA) Normal (Normal); Ketones,Urine Negative (Negative); Leukocyte Esterase,Urine Small (Negative); Nitrite,Urine Negative (Negative); PH,Urine 5.5 pH Units (5.0-8.0); Protein,Urine 100 mg/dL (Neg-Trace); Urobilinogen,Urine Normal (Normal)
[2019-02-24 17:26] LABS: Bacteria,Urine None Seen per hpf (None-Few); Hyaline Casts,Urine Few per lpf (None-Few)
[2019-02-24] MEDS ORDERED: *HR* LORazepam 2 MG/ML VIAL IVP PRN (17:28)
[2019-02-24 17:40] LABS: RBC,Urine TNTC per hpf (0-3); Squamous Epithelial Cell,Urine Few per lpf (None-Few)
[2019-02-24 17:57] LABS: Amphetamine Screen,Urine Positive ng/mL (Cutoff=1000); Barbiturate Screen,Urine Negative ng/mL (Cutoff=200); Benzodiazepines Screen,Urine Negative ng/mL (Cutoff=200); Cannabinoid Screen,Urine Negative ng/mL (Cutoff = 50); Cocaine Screen,Urine Negative ng/mL (Cutoff= 300); Opiate Screen,Urine Positive ng/mL (Cutoff=300); Phencyclidine Screen,Urine Negative ng/mL (Cutoff=25)
[2019-02-24] MEDS: Ringers Solution, Lactated 1,000 ML IVC SCH (21:45)
[2019-02-24] MEDS: *HR* Heparin 5,000 UNIT/ML VIAL SQ SCH (21:52)
[2019-02-24] MEDS: *HR* LORazepam 2 MG/ML VIAL IVP ONE ×2 (21:52→23:05)
[2019-02-24] MEDS ORDERED: *HR* LORazepam 1 MG TABLET PO ONE (23:03)
[2019-02-25] MEDS: *HR* Heparin 5,000 UNIT/ML VIAL SQ SCH (04:32)
[2019-02-25] MEDS: Ringers Solution, Lactated 1,000 ML IVC SCH ×2 (04:32→18:06)
[2019-02-25] MEDS: Ceftaroline Fosamil Acetate 600 MG in 0.9 % Sodium Chloride 50 ML IVPB SCH ×2 (13:35→20:45)
[2019-02-25 16:10] LABS: Hematocrit 25.8 % (37.5-50.1); Hemoglobin 8.4 g/dL (12.9-16.9); Mean Corpuscular HGB Conc 32.6 g/dL (31.6-35.5); Mean Corpuscular Hemoglobin 28.8 pg (28.0-33.3); Mean Corpuscular Volume 88.4 fL (83.0-100.0); Mean Platelet Volume 9.8 fL (9.4-12.4); Platelet Count 305 K/mcL (140-400); Red Blood Count 2.92 M/mcL (4.19-5.50); Red Cell Distribution Width 12.9 % (11.5-14.5); White Blood Count 7.1 K/mcL (4.3-11.1)
[2019-02-25 16:27] LABS: Calcium 8.3 mg/dL (8.6-10.3); Potassium 4.2 mEq/L (3.5-5.1)
[2019-02-25 16:33] LABS: Eosinophils # 1.1 K/mcL (0.0-0.6); Monocytes # 0.3 K/mcL (0.0-1.3); Neutrophils # 4.7 K/mcL (1.6-8.9); Platelet Estimate Normal (Normal)
[2019-02-26] MEDS: Ceftaroline Fosamil Acetate 600 MG in 0.9 % Sodium Chloride 50 ML IVPB SCH (10:54)
[2019-02-26] MEDS: hydrOXYzine pamoate 25 MG CAPSULE PO PRN (22:43)
[2019-02-27 00:10] LABS: Amphetamine Screen,Urine Negative ng/mL (Cutoff=1000); Barbiturate Screen,Urine Negative ng/mL (Cutoff=200); Benzodiazepines Screen,Urine Negative ng/mL (Cutoff=200); Cannabinoid Screen,Urine Negative ng/mL (Cutoff = 50); Cocaine Screen,Urine Negative ng/mL (Cutoff= 300); Opiate Screen,Urine Negative ng/mL (Cutoff=300); Phencyclidine Screen,Urine Negative ng/mL (Cutoff=25)
[2019-02-27] MEDS: Ceftaroline Fosamil Acetate 600 MG in 0.9 % Sodium Chloride 50 ML IVPB SCH ×2 (00:17→11:29)
[2019-02-27] MEDS: Ringers Solution, Lactated 1,000 ML IVC SCH (00:18)
[2019-02-28] MEDS: Ceftaroline Fosamil Acetate 600 MG in 0.9 % Sodium Chloride 50 ML IVPB SCH ×3 (01:20→23:31)
[2019-02-28 06:41] LABS: Basophils % 0.6 %; Eosinophils % 14.1 %; Hematocrit 28.8 % (37.5-50.1); Hemoglobin 9.6 g/dL (12.9-16.9); Immature Granulocytes % 0.4 % (0-4); Lymphocytes # 1.8 K/mcL (0.6-4.6); Lymphocytes % 25.7 %; Mean Corpuscular HGB Conc 33.3 g/dL (31.6-35.5); Mean Corpuscular Hemoglobin 28.9 pg (28.0-33.3); Mean Corpuscular Volume 86.7 fL (83.0-100.0); Mean Platelet Volume 10.1 fL (9.4-12.4); Monocytes # 0.5 K/mcL (0.0-1.3); Neutrophils # 3.7 K/mcL (1.6-8.9); Platelet Count 314 K/mcL (140-400); Red Blood Count 3.32 M/mcL (4.19-5.50); Red Cell Distribution Width 13.2 % (11.5-14.5); Segmented Neutrophils % 52.2 %
[2019-02-28 07:00] LABS: Calcium 8.2 mg/dL (8.6-10.3); Magnesium 1.3 mg/dL (1.6-2.6); Potassium 3.9 mEq/L (3.5-5.1)
[2019-02-28] MEDS ORDERED: Lidocaine -MPF 1% 5 ML AMPUL INFILT ONE (10:01)
[2019-03-01] MEDS: hydrOXYzine pamoate 25 MG CAPSULE PO PRN ×2 (11:36→17:47)
[2019-03-01] MEDS: cloNIDine HCl 0.1 MG TABLET PO PRN ×2 (11:36→17:48)
[2019-03-01] MEDS: Ceftaroline Fosamil Acetate 600 MG in 0.9 % Sodium Chloride 50 ML IVPB SCH (11:37)
[2019-03-02] MEDS: Ceftaroline Fosamil Acetate 600 MG in 0.9 % Sodium Chloride 50 ML IVPB SCH ×3 (02:07→19:49)
[2019-03-02] MEDS: hydrOXYzine pamoate 25 MG CAPSULE PO PRN ×2 (11:09→19:54)
[2019-03-03] MEDS: hydrOXYzine pamoate 25 MG CAPSULE PO PRN ×2 (08:20→23:50)
[2019-03-03] MEDS: Ceftaroline Fosamil Acetate 600 MG in 0.9 % Sodium Chloride 50 ML IVPB SCH ×2 (13:04→23:53)
[2019-03-03 18:50] LABS: Basophils % 0.5 %; Eosinophils # 0.8 K/mcL (0.0-0.6); Eosinophils % 9.4 %; Hemoglobin 9.7 g/dL (12.9-16.9); Immature Granulocytes % 0.8 % (0-4); Lymphocytes # 1.7 K/mcL (0.6-4.6); Lymphocytes % 19.5 %; Mean Corpuscular HGB Conc 32.3 g/dL (31.6-35.5); Mean Corpuscular Hemoglobin 28.9 pg (28.0-33.3); Mean Corpuscular Volume 89.3 fL (83.0-100.0); Mean Platelet Volume 10.5 fL (9.4-12.4); Monocytes # 0.7 K/mcL (0.0-1.3); Monocytes % 7.9 %; Neutrophils # 5.2 K/mcL (1.6-8.9); Platelet Count 329 K/mcL (140-400); Red Blood Count 3.36 M/mcL (4.19-5.50); Red Cell Distribution Width 13.6 % (11.5-14.5); Segmented Neutrophils % 61.9 %; White Blood Count 8.4 K/mcL (4.3-11.1)
[2019-03-03 19:17] LABS: BUN/Creatinine Ratio 15 (6-26); Blood Urea Nitrogen 33 mg/dL (6-20); eGFR For African Americans 42 (> 60); eGFR For Non-African Americans 35 (> 60)
[2019-03-04] MEDS: hydrOXYzine pamoate 25 MG CAPSULE PO PRN ×2 (05:45→22:39)
[2019-03-04] MEDS: 0.9 % Sodium Chloride 1,000 ML IVC SCH (09:32)
[2019-03-04] MEDS: Ceftaroline Fosamil Acetate 600 MG in 0.9 % Sodium Chloride 50 ML IVPB SCH (13:38)
[2019-03-05] MEDS: Nicotine 21 MG PATCH.TD24 TD SCH ×2 (00:35→09:13)
[2019-03-05] MEDS: Ceftaroline Fosamil Acetate 600 MG in 0.9 % Sodium Chloride 50 ML IVPB SCH ×2 (00:37→13:38)
[2019-03-05] MEDS: 0.9 % Sodium Chloride 1,000 ML IVC SCH ×3 (00:38→21:34)
[2019-03-05 05:41] LABS: Basophils # 0.1 K/mcL (0.0-0.2); Basophils % 0.8 %; Eosinophils # 0.9 K/mcL (0.0-0.6); Eosinophils % 10.7 %; Hematocrit 29.2 % (37.5-50.1); Hemoglobin 9.2 g/dL (12.9-16.9); Lymphocytes # 1.9 K/mcL (0.6-4.6); Lymphocytes % 21.8 %; Mean Corpuscular HGB Conc 31.5 g/dL (31.6-35.5); Mean Corpuscular Hemoglobin 29.1 pg (28.0-33.3); Mean Corpuscular Volume 92.4 fL (83.0-100.0); Mean Platelet Volume 10.6 fL (9.4-12.4); Monocytes # 0.7 K/mcL (0.0-1.3); Platelet Count 299 K/mcL (140-400); Red Blood Count 3.16 M/mcL (4.19-5.50); Red Cell Distribution Width 13.8 % (11.5-14.5); Segmented Neutrophils % 57.7 %; White Blood Count 8.7 K/mcL (4.3-11.1)
[2019-03-05 06:02] LABS: Calcium 8.5 mg/dL (8.6-10.3); Potassium 4.3 mEq/L (3.5-5.1)
[2019-03-05] MEDS: hydrOXYzine pamoate 25 MG CAPSULE PO PRN ×2 (09:13→21:32)
[2019-03-05 11:25] LABS: Magnesium 2.1 mg/dL (1.6-2.6)
[2019-03-05 19:41] VITALS: BP 139/86
== END 2019-03-06 00:35 | disposition left against medical advice (07) | DRG 193 ==
LOC: 2NENU 14:09 → EMEROOARM 14:09 → SUATTDRO 17:09 → 2NENU 18:39 → SUATTDRO 02-25 11:55
PROVIDERS: ADMIT Student in an Organized Health Care Education/Training Program; ATTEND Family Medicine